=== PATIENT | female | born 1950 | race Caucasian/White ===

== ENCOUNTER 2023-07-17 18:04 | Emergency (ER) | payer MEDICARE, OTHER | END 2023-07-17 20:25 | disposition left against medical advice (07) | LOC: NAV ERS 18:04 | DX: M79.89 Other specified soft tissue disorders (principal); I10 Essential (primary) hypertension; E78.00 Pure hypercholesterolemia, unspecified; Z87.891 Personal history of nicotine dependence; Z79.899 Other long term (current) drug therapy | CPT/HCPCS: 99283 ==